=== PATIENT | female | born 1975 | race Caucasian/White ===

== ENCOUNTER 2018-09-12 16:59 | Outpatient (CLI) | payer OTHER ==
[~2018-09-12] VITALS: Ht 172.7 cm; Wt 115.9 kg
[2018-09-12 17:31] LABS: MICROSCOPIC INDICATED
[2018-09-12 17:45] LABS: BASOPHILS # (AUTO) 0.04 x10^3/uL (0-0.1); BASOPHILS % (AUTO) 1 % (0-1); EOSINOPHILS # (AUTO) 0.09 x10^3/uL (0-0.4); EOSINOPHILS % (AUTO) 1 % (1-7); LYMPHOCYTES # (AUTO) 1.62 x10^3/uL (1-3.4); LYMPHOCYTES % (AUTO) 18 % (22-44); MD NO; MEAN CORPUSCULAR HEMOGLOBIN 30.1 pg (27.0-34.8); MEAN CORPUSCULAR HGB CONC 33.9 g/dL (32.4-35.8); MEAN CORPUSCULAR VOLUME 88.9 fL (80-100); MEAN PLATELET VOLUME 7.7 fL (7.4-10.4); MONOCYTES # (AUTO) 0.57 x10^3/uL (0.2-0.8); MONOCYTES % (AUTO) 6 % (2-9); NEUTROPHILS # (AUTO) 6.66 x10^3/uL (1.8-6.8); NEUTROPHILS % (AUTO) 74 % (42-75); PLATELET COUNT 287 x10^3/uL (130-400); RED BLOOD COUNT 3.88 x10^6/uL (3.82-5.3); RED CELL DISTRIBUTION WIDTH 14.2 % (9.6-15.2)
[2018-09-12 17:56] LABS: ALANINE AMINOTRANSFERASE 12 U/L (12-78); ALBUMIN 2.6 g/dL (3.4-5.0); ANION GAP 7 mmol/L (5-15); CALCIUM 9.2 mg/dL (8.5-10.1); CHLORIDE 107 mmol/L (98-107); CREATININE 0.56 mg/dL (0.55-1.02)
[2018-09-12 17:59] LABS: ALKALINE PHOSPHATASE 87 U/L (45-117); BILIRUBIN,TOTAL 0.2 mg/dL (0.2-1.0); TOTAL PROTEIN 6.3 g/dL (6.4-8.2)
== END 2018-09-12 18:01 | disposition home or self-care (01) ==
LOC: LDOP 16:59
PROVIDERS: ATTEND Obstetrics & Gynecology
DX: O26.893 Other specified pregnancy related conditions, third trimester (principal); R11.0 Nausea; Z3A.31 31 weeks gestation of pregnancy
CPT/HCPCS: 36415; 59025; 80053; 81001; 85025; 87086; 99201; G0463

== ENCOUNTER 2018-11-01 11:29 | Outpatient (CLI) | payer OTHER ==
[~2018-11-01] VITALS: Ht 172.7 cm; Wt 118.0 kg
== END 2018-11-01 14:37 | disposition home or self-care (01) ==
LOC: LDOP 11:29
PROVIDERS: ATTEND Obstetrics & Gynecology
DX: O9A.213 Injury, poisoning and certain other consequences of external causes complicating pregnancy, third trimester (principal); S80.02XA Contusion of left knee, initial encounter; S00.81XA Abrasion of other part of head, initial encounter; O26.893 Other specified pregnancy related conditions, third trimester; R55 Syncope and collapse; Z3A.38 38 weeks gestation of pregnancy; W19.XXXA Unspecified fall, initial encounter; Y93.89 Activity, other specified; Y92.89 Other specified places as the place of occurrence of the external cause; Y99.8 Other external cause status
CPT/HCPCS: 59025; 99211; G0463

== ENCOUNTER 2018-11-03 05:29 | Inpatient (IN) | payer OTHER ==
[~2018-11-03] VITALS: Ht 172.7 cm; Wt 120.5 kg
[2018-11-03] MEDS ORDERED: D5%-LACTATED RINGERS 1,000 ML IV SCH (05:43)
[2018-11-03] MEDS ORDERED: OXYTOCIN 30U/ 0.9% NaCL 500ML 500 ML IV ONE (05:43)
[2018-11-03] MEDS ORDERED: LACTATED RINGERS 1,000 ML IV SCH ×2 (05:43→07:44)
[2018-11-03] MEDS ORDERED: FENTANYL/BUPIV./NS/PF 250 ML EPIDCONT SCH ×2 (05:47→07:44)
[2018-11-03] MEDS ORDERED: LIDOCAINE 1%, 20ML ONE (05:53)
[2018-11-03] MEDS ORDERED: NEWBORN KIT ONE (05:53)
[2018-11-03] MEDS ORDERED: MISOPROSTOL 200 MCG TABLET ONE (05:54)
[2018-11-03] MEDS ORDERED: FENTANYL PF 100 MCG/2ML ONE ×4 (05:54→15:36)
[2018-11-03] MEDS ORDERED: OXYTOCIN 30U/ 0.9% NaCL 500ML 500 ML ONE (05:54)
[2018-11-03 05:55] VITALS: BP 124/84
[2018-11-03] MEDS: FENTANYL PF 100 MCG/2ML IVPush PRN ×2 (05:57→07:06)
[2018-11-03] MEDS ORDERED: TERBUTALINE 1 MG/ML, 1ML IVPush PRN (06:00)
[2018-11-03] MEDS ORDERED: FENTANYL PF 100 MCG/2ML IV PRN (06:00)
[2018-11-03] MEDS ORDERED: ONDANSETRON 2MG/ML, 2ML IVPush PRN (06:00)
[2018-11-03] MEDS ORDERED: CALCIUM CARBONATE 500 MG TAB.CHEW PO PRN ×2 (06:00→16:00)
[2018-11-03] MEDS ORDERED: SODIUM CITRATE/CITRIC ACID 15 ML UDC PO PRN (06:00)
[2018-11-03] MEDS ORDERED: METOCLOPRAMIDE 5 MG/ML, 2ML IVPush PRN (06:00)
[2018-11-03 06:09] LABS: BASOPHILS # (AUTO) 0.03 x10^3/uL (0-0.1); BASOPHILS % (AUTO) 0 % (0-1); EOSINOPHILS # (AUTO) 0.06 x10^3/uL (0-0.4); EOSINOPHILS % (AUTO) 1 % (1-7); LYMPHOCYTES % (AUTO) 16 % (22-44); MD NO; MEAN CORPUSCULAR HEMOGLOBIN 29.9 pg (27.0-34.8); MEAN CORPUSCULAR HGB CONC 33.9 g/dL (32.4-35.8); MEAN CORPUSCULAR VOLUME 88.3 fL (80-100); MEAN PLATELET VOLUME 8.5 fL (7.4-10.4); MONOCYTES # (AUTO) 0.53 x10^3/uL (0.2-0.8); MONOCYTES % (AUTO) 6 % (2-9); NEUTROPHILS # (AUTO) 7.13 x10^3/uL (1.8-6.8); NEUTROPHILS % (AUTO) 77 % (42-75); PLATELET COUNT 253 x10^3/uL (130-400); RED BLOOD COUNT 4.15 x10^6/uL (3.82-5.3); RED CELL DISTRIBUTION WIDTH 15.6 % (9.6-15.2)
[2018-11-03] MEDS ORDERED: FENTANYL PF 500 MCG, BUPIVACAINE/PF 0.5%, 30ML 62.5 ML in SODIUM CHLORIDE 0.9% 177.5 ML EPIDCONT SCH (06:30)
[2018-11-03] MEDS ORDERED: PLEASE ENTER HEIGHT AND WEIGHT MC SCH (06:30)
[2018-11-03] MEDS: LACTATED RINGERS 1,000 ML IVBOLUS PRN ×2 (07:00→09:44)
[2018-11-03] MEDS ORDERED: BUPIVACAINE 0.25% ONE (07:18)
[2018-11-03] MEDS ORDERED: EPHEDRINE 50 MG/ML, 1ML IVPush PRN (08:00)
[2018-11-03] MEDS ORDERED: EPHEDRINE 50 MG/ML, 1ML ONE (08:01)
[2018-11-03] MEDS: OXYTOCIN 30U/ 0.9% NaCL 500ML 500 ML IV PRN ×2 (09:17→15:26)
[2018-11-03] MEDS ORDERED: CEFAZOLIN 1,000 MG ONE (14:17)
[2018-11-03] MEDS ORDERED: ONDANSETRON 2MG/ML, 2ML ONE (14:17)
[2018-11-03] MEDS ORDERED: OXYTOCIN 10 UNITS/ML, 1ML ONE (14:17)
[2018-11-03] MEDS ORDERED: SODIUM CHLORIDE 0.9% PF 10ML ONE ×2 (14:19)
[2018-11-03] MEDS ORDERED: HYDROmorphone 2 MG/ML, 1ML ONE (14:22)
[2018-11-03] MEDS ORDERED: LIDOCAINE-MPF 2% ,5ML ONE ×2 (14:23)
[2018-11-03] MEDS ORDERED: OXYcodone 5 MG/5 ML ORAL.SOL UDC ONE (15:36)
[2018-11-03] MEDS: OXYTOCIN 30U/ 0.9% NaCL 500ML 500 ML IV SCH (15:40)
[2018-11-03] MEDS: LACTATED RINGERS 1,000 ML IV SCH ×3 (15:40→23:40)
[2018-11-03] MEDS ORDERED: MISOPROSTOL 200 MCG TABLET PR PRN (16:00)
[2018-11-03] MEDS ORDERED: GLYCERIN ADULT SUPP PR PRN (16:00)
[2018-11-03] MEDS ORDERED: MEPERIDINE/PF 50 MG/ML IVPush PRN (16:00)
[2018-11-03] MEDS ORDERED: DIPH,PERTUSS(ACELL),TET VAC/PF NC IM-VACC PRN (16:00)
[2018-11-03] MEDS ORDERED: CARBOPROST TROMETHAMINE 250 MCG/ML, 1ML IM PRN (16:00)
[2018-11-03] MEDS ORDERED: ACETAMINOPHEN 325 MG TABLET PO PRN ×2 (16:00)
[2018-11-03] MEDS ORDERED: FENTANYL PF 100 MCG/2ML IV ONE ×2 (16:00→17:00)
[2018-11-03] MEDS ORDERED: METHYLERGONOVINE 0.2 MG/ML IM PRN (16:00)
[2018-11-03] MEDS ORDERED: METOCLOPRAMIDE 5 MG/ML, 2ML IV PRN (16:00)
[2018-11-03] MEDS ORDERED: OXYcodone 5 MG/5 ML ORAL.SOL UDC PO PRN (16:00)
[2018-11-03] MEDS ORDERED: BISACODYL 10 MG SUPP PR PRN (16:00)
[2018-11-03] MEDS ORDERED: IBUPROFEN 600 MG TABLET PO PRN (16:00)
[2018-11-03] MEDS ORDERED: ONDANSETRON 2MG/ML, 2ML IV PRN (16:00)
[2018-11-03] MEDS ORDERED: MEASLES,MUMPS&RUBELLA VACC/PF 0.5 ML SQ-VACC PRN (16:00)
[2018-11-03 17:47] VITALS: BP 134/78
[2018-11-03] MEDS: KETOROLAC 30 MG/1 ML IV SCH (18:19)
[2018-11-03 20:00] VITALS: BP 127/77
[2018-11-03 21:57] LABS: MEAN CORPUSCULAR HEMOGLOBIN 29.5 pg (27.0-34.8); MEAN CORPUSCULAR HGB CONC 33.1 g/dL (32.4-35.8); MEAN PLATELET VOLUME 8.5 fL (7.4-10.4); PLATELET COUNT 217 x10^3/uL (130-400); RED BLOOD COUNT 3.62 x10^6/uL (3.82-5.3); RED CELL DISTRIBUTION WIDTH 15.4 % (9.6-15.2)
[2018-11-03] MEDS: OXYcodone/APAP 5/325MG TABLET PO PRN (21:58)
[2018-11-03 22:10] LABS: BASOPHILS # (AUTO) 0.01 x10^3/uL (0-0.1); BASOPHILS % (AUTO) 0 % (0-1); EOSINOPHILS % (AUTO) 0 % (1-7); LYMPHOCYTES # (AUTO) 0.92 x10^3/uL (1-3.4); LYMPHOCYTES % (AUTO) 6 % (22-44); MD SCAN; MONOCYTES # (AUTO) 0.65 x10^3/uL (0.2-0.8); MONOCYTES % (AUTO) 4 % (2-9); NEUTROPHILS # (AUTO) 13.92 x10^3/uL (1.8-6.8); NEUTROPHILS % (AUTO) 90 % (42-75)
[2018-11-04] VITALS: BP 121/72
[2018-11-04] MEDS: KETOROLAC 30 MG/1 ML IV SCH ×4 (00:05→18:11)
[2018-11-04] MEDS: LACTATED RINGERS 1,000 ML IV SCH ×6 (01:40→23:40)
[2018-11-04] MEDS: OXYTOCIN 30U/ 0.9% NaCL 500ML 500 ML IV SCH ×3 (01:40→21:40)
[2018-11-04 03:56] VITALS: BP 108/62
[2018-11-04 06:04] LABS: BASOPHILS # (AUTO) 0.01 x10^3/uL (0-0.1); BASOPHILS % (AUTO) 0 % (0-1); EOSINOPHILS # (AUTO) 0.02 x10^3/uL (0-0.4); EOSINOPHILS % (AUTO) 0 % (1-7); LYMPHOCYTES # (AUTO) 0.82 x10^3/uL (1-3.4); LYMPHOCYTES % (AUTO) 6 % (22-44); MD NO; MEAN CORPUSCULAR HEMOGLOBIN 29.8 pg (27.0-34.8); MEAN CORPUSCULAR HGB CONC 33.4 g/dL (32.4-35.8); MEAN CORPUSCULAR VOLUME 89.3 fL (80-100); MEAN PLATELET VOLUME 8.5 fL (7.4-10.4); MONOCYTES % (AUTO) 4 % (2-9); NEUTROPHILS # (AUTO) 11.38 x10^3/uL (1.8-6.8); NEUTROPHILS % (AUTO) 89 % (42-75); PLATELET COUNT 196 x10^3/uL (130-400); RED BLOOD COUNT 3.48 x10^6/uL (3.82-5.3); RED CELL DISTRIBUTION WIDTH 15.6 % (9.6-15.2)
[2018-11-04 07:20] VITALS: BP 114/75
[2018-11-04] MEDS: DOCUSATE 100 MG CAPSULE PO PRN (07:43)
[2018-11-04] MEDS: PRENATAL VIT/IRON/FA 1 EACH TABLET PO SCH (07:43)
[2018-11-04] MEDS: OXYcodone/APAP 5/325MG TABLET PO PRN ×3 (07:43→17:30)
[2018-11-04 12:00] VITALS: BP 127/79
[2018-11-04] MEDS: SIMETHICONE 80 MG CHEW TAB PO PRN ×2 (12:27→18:11)
[2018-11-04 20:00] VITALS: BP 121/65
[2018-11-05] MEDS: KETOROLAC 30 MG/1 ML IV SCH ×3 (00:26→12:59)
[2018-11-05] MEDS: SIMETHICONE 80 MG CHEW TAB PO PRN ×4 (00:26→18:48)
[2018-11-05] MEDS: LACTATED RINGERS 1,000 ML IV SCH ×2 (07:40→17:40)
[2018-11-05] MEDS: OXYTOCIN 30U/ 0.9% NaCL 500ML 500 ML IV SCH ×2 (07:40→17:40)
[2018-11-05 07:52] VITALS: BP 103/69
[2018-11-05] MEDS: DOCUSATE 100 MG CAPSULE PO PRN ×3 (08:23→21:48)
[2018-11-05] MEDS: PRENATAL VIT/IRON/FA 1 EACH TABLET PO SCH (08:26)
[2018-11-05] MEDS: OXYcodone/APAP 5/325MG TABLET PO PRN ×3 (08:42→21:48)
[2018-11-05] MEDS: IBUPROFEN 600 MG TABLET PO PRN (18:49)
[2018-11-05 19:47] VITALS: BP 123/80
[2018-11-06] MEDS: SIMETHICONE 80 MG CHEW TAB PO PRN ×2 (00:39→06:48)
[2018-11-06] MEDS: IBUPROFEN 600 MG TABLET PO PRN ×2 (00:39→06:48)
[2018-11-06] MEDS: OXYTOCIN 30U/ 0.9% NaCL 500ML 500 ML IV SCH (03:40)
[2018-11-06] MEDS: LACTATED RINGERS 1,000 ML IV SCH (03:40)
[2018-11-06] MEDS: DOCUSATE 100 MG CAPSULE PO PRN (08:07)
[2018-11-06] MEDS: PRENATAL VIT/IRON/FA 1 EACH TABLET PO SCH (08:08)
[2018-11-06 08:10] VITALS: BP 136/84
[2018-11-06] MEDS ORDERED: IBUP-1222 PO (09:08)
[2018-11-06] MEDS ORDERED: OXYC-302 PO (09:08)
== END 2018-11-06 11:46 | disposition home or self-care (01) | DRG 788 ==
LOC: LDOP 05:29 → LDIP 05:46 → 2NW 17:37
PROVIDERS: ADMIT Obstetrics & Gynecology; ATTEND Obstetrics & Gynecology
PROC: 10D00Z1 Extraction of Products of Conception, Low, Open Approach (ICD-10-PCS; principal; 2018-11-03)
DX: O76 Abnormality in fetal heart rate and rhythm complicating labor and delivery (principal); Z37.0 Single live birth; Z3A.38 38 weeks gestation of pregnancy; Z82.3 Family history of stroke; Z82.49 Family history of ischemic heart disease and other diseases of the circulatory system
CPT/HCPCS: 36415; J3490; 82803; 85025; 86850; 86900; G0378; J0690; J1170; J1885; J2405; J3010; J2590; J7050; J7120

== ENCOUNTER 2020-01-13 10:09 | Outpatient (CLI) | payer BC ==
[~2020-01-13 10:09] MED LIST: IBUP-1222 PO; OXYC-302 PO
[2020-01-13] MEDS ORDERED: SINCALIDE (KINEVAC) 5 MCG ONE (11:56)
== END 2020-01-13 23:59 | disposition home or self-care (01) ==
LOC: RAD 10:09
PROVIDERS: ATTEND Family Medicine
DX: K76.89 Other specified diseases of liver (principal)
CPT/HCPCS: 78227; A9537; J2805